=== PATIENT | male | born 1950 | race Caucasian/White ===

== ENCOUNTER → 2016-12-21 | Outpatient (CLI) | payer MEDICARE, MEDICAID ==
[2016-06-19 14:48] VITALS: BP 151/83
[~2016-12-21] MED LIST: AMLO5TAB2 PO; ASPI-482 PO; ATEN25TA PO; BARIUM SULFATE 0.1% 450 ML SUSP PO ONE; BARIUM SULFATE 105% 1,900 ML SUSP PO ONE; BARIUM SULFATE 2.1% 450 ML SUSP PO ONE; BARIUM SULFATE 40% (APPLE) 148 GM PWD. PO ONE; BARIUM SULFATE 40% PO ONE; BARIUM SULFATE 60% 355 ML SUSP PO ONE; BARIUM SULFATE 98% 135 ML SUSP PO ONE; BUSP15TA PO; BUSP30TA PO; CLOP75TA PO; CRESTOR40 MG PO; DICL100G18 TP; DOLU50TA PO; EMTR1TAB8 PO; ESCITALOPRAM OX20 MG PO; FENO145T2 PO; HYDR25TA9 PO; LANS30CA PO; OLAN2.5T3 PO; OMEP20CA9 PO; SITA50TA PO; TAMS0.4C97 PO; TOPI100T8 PO; TRAM50TA PO; TRAZ-90 PO; VALS320T2 PO; ZOLP12.54 PO
--- NOTE | 2016-12-21 13:57 | RAD ---
Esophagram 12/21/2016 at 1130 hours Indication: Dysphagia Comparison: None available Technique: Single PA view of the chest was performed. After the ingestion of thick barium liquid, double contrast evaluation of the esophagus was performed. Upright and prone imaging was performed. Cine evaluation of the cervical esophagus was performed. Findings: Cervical esophagus is normal. No evidence for aspiration. Thoracic esophagus is normal in contour. No mucosal abnormality is identified. There is no hiatal hernia. Small amount of reflux identified extending into the lower one third of the esophagus and clearing promptly. No strictures or webs are identified. Small tertiary contractions were noted on prone evaluation suggestive of presbyesophagus. Impression: 1. Small amount of gastroesophageal reflux identified during the examination extending into the lower one third of the esophagus and clearing promptly. 2. Mild presbyesophagus.
== END | disposition home or self-care (01) ==
LOC: RAD 10:05
PROVIDERS: ATTEND Family Medicine
DX: K21.9 Gastro-esophageal reflux disease without esophagitis (principal); K22.8 Other specified diseases of esophagus
CPT/HCPCS: 74220

== ENCOUNTER 2017-01-03 10:48 | Emergency (ER) | payer MEDICARE, MEDICAID ==
[~2017-01-03] VITALS: Ht 172.7 cm; Wt 99.8 kg
[~2017-01-03 10:48] MED LIST changes: -BARIUM SULFATE 0.1% 450 ML SUSP PO ONE; -BARIUM SULFATE 105% 1,900 ML SUSP PO ONE; -BARIUM SULFATE 2.1% 450 ML SUSP PO ONE; -BARIUM SULFATE 40% (APPLE) 148 GM PWD. PO ONE; -BARIUM SULFATE 40% PO ONE; -BARIUM SULFATE 60% 355 ML SUSP PO ONE; -BARIUM SULFATE 98% 135 ML SUSP PO ONE
[2017-01-03 11:20] VITALS: BP 158/104
--- NOTE | 2017-01-03 11:20 | PHYS DOC ---
Past History Past Medical History: Alcoholism, Bipolar, Depression, HIV, Hypertension, Seizure, TIA, Other Past Surgical History: Other Alcohol Use: Sober Drug Use: None Adult General Chief Complaint Chief Complaint: MECHANICAL FALL HPI HPI Patient is a 66 year old M who presents with shoulder and chest pain after falling down [place]. Patient states he tripped and fell forward while walking down [place] steps [place] the [place] and caught himself with his arms. Patient states he did not hit his head and did not lose consciousness. Patient complains of right lower rib pain, left shoulder pain, and elbow pain bilaterally. Patient denies any other injuries. Patient states he can move all extremities however they're actually painful. Patient has no abrasions. Review of Systems Review of Systems GEN: Denies fevers, chills, sweats HEENT: Denies blurred vision, sore throat CV: Chest wall pain RESP: Denies shortness of air, cough GI: Denies n/v/d NEURO: Denies confusion, dizziness MSK: Elbow and shoulder pain Allergies Allergies Allergies Coded Allergies Type Severity Reaction Last Updated Verified No Known Drug Allergies 07/24/14 No Physical Exam Physical Exam GEN.: No apparent distress. Alert and oriented. HEENT: Head is normocephalic, atraumatic NECK: Supple. LUNGS: CTAB. HEART: RRR, S1, S2 present. Peripheral pulses intact ABDOMEN: Soft, nontender. Positive bowel sounds. EXTREMITIES: Without any cyanosis. Tenderness palpation over the elbows bilaterally with pain with range of motion, tenderness palpation of the left shoulder with pain with range of motion or deformities noted NEUROLOGIC: Normal speech, normal tone PSYCHIATRIC: Normal affect, normal mood. SKIN: No ulcerations Chest wall: Tenderness palpation over the right lower ribs, no crepitus EKG EKG [] Radiology/Procedures Radiology/Procedures X-ray of the left elbow shows a radial head nondisplaced fracture X-ray of the right elbow no obvious fracture X-ray of the left shoulder no obvious fracture Chest x-ray with ribs no obvious fracture [] Course & Med Decision Making Course & Med Decision Making Pertinent Labs and Imaging studies reviewed. (See chart for details) ED course: Patient was seen and examined, x-rays of the elbows bilaterally, x-ray of the left shoulder, chest x-ray with right ribs were ordered 1209: Patient was updated on x-ray results and explained that he had a fracture of his radial head on the left and will be placed in a sugar tong splint with a sling to follow orthopedics 1220: Sugar tong splint was applied to the left arm. Post splint reevaluation the left upper extremity is neurovascular intact MDM: After reviewing the chart, CC/HPI/PMH, physical exam, [radiological results], I do not believe the patient sustained a significant traumatic injury warranting further workup and/or admission at this time. Since the patient stated he did not hit his head and had no loss of consciousness a CT scan of the head and neck are not indicated at this time. Patient stable for discharge. Since the patient has tenderness over his proximal left radial head I believe the patient has a nondisplaced radial head fracture and will treat as such. Additional verbal discharge instructions were provided to the patient and that if symptoms get worse or any new symptoms arise that are worrisome to the patient he is to return to the emergency room immediately [] Dragon Disclaimer Dragon Disclaimer This chart was dictated in whole or in part using Voice Recognition software in a busy, high-work load, and often noisy Emergency Department environment. It may contain unintended and wholly unrecognized errors or omissions. Departure Departure: Impression: Primary Impression: Shoulder pain, left Additional Impressions: Left radial head fracture Fall Disposition: 01 HOME, SELF-CARE Condition: IMPROVED Referrals: MADELAINE MCCAIN MD (PCP) Patient Instructions: Radial Head Fracture, [id number] Additional Instructions: Please follow up with her family doctor in one to 2 days Scripts Ibuprofen (IBUPROFEN IB) 200 Mg Tablet 800 MG PO Q8HRS Y for PAIN for 5 Days, #20 TAB Prov: GARO WYNNE DO 01/03/17 Problem Qualifiers GARO WYNNE DO Jan 03, 2017 11:20
--- NOTE | 2017-01-03 12:15 | RAD ---
Right RIBS with chest, 4 views, 01/03/2017: History: Fall, pain No acute rib fracture is identified. There is no evidence of underlying pneumothorax, hemothorax or pulmonary infiltrate. There is minimal bibasilar linear atelectasis and/or scarring. Aortic calcific plaquing is present. IMPRESSION: No acute right rib abnormality is detected.
--- NOTE | 2017-01-03 12:18 | RAD ---
Left shoulder, 3 views, 01/03/2017: History: Fall, shoulder and elbow pain and tenderness There is moderate degenerative change at the acromioclavicular joint. There is mild spurring along the glenoid rim. No acute fracture or dislocation is identified. IMPRESSION: No acute left shoulder abnormality is detected. Bilateral elbows, 6 views, 01/03/2017: No acute fracture or dislocation is identified. There is a questionable small joint effusion on the right. IMPRESSION: No acute bony abnormality is detected.
[2017-01-03] MEDS ORDERED: IBUP200T93 PO (12:29)
[2017-01-03] MEDS: IBUPROFEN 400 MG TABLET. PO ONE (12:39)
== END 2017-01-03 12:45 | disposition home or self-care (01) ==
LOC: ER 10:48
DX: S52.122A Displaced fracture of head of left radius, initial encounter for closed fracture (principal); M25.512 Pain in left shoulder; R07.81 Pleurodynia; F10.20 Alcohol dependence, uncomplicated; I10 Essential (primary) hypertension; F31.9 Bipolar disorder, unspecified; Z86.73 Personal history of transient ischemic attack (TIA), and cerebral infarction without residual deficits; W01.0XXA Fall on same level from slipping, tripping and stumbling without subsequent striking against object, initial encounter; Y93.01 Activity, walking, marching and hiking; Y99.8 Other external cause status; Y92.241 Library as the place of occurrence of the external cause
CPT/HCPCS: 29105; 71101; 73030; 73080; 99284-25